=== PATIENT | male | born 2000 | race African-American/Black ===

== ENCOUNTER 2024-02-25 06:21 | Emergency (ER) | payer SELFPAY ==
[~2024-02-25] VITALS: Ht 177.8 cm; Wt 104.0 kg
[2024-02-25 06:27] VITALS: PULSE 84; RESP 18; TEMP 98.4; O2SAT 98
[2024-02-25] MEDS: SODIUM CHLORIDE 0.9% 1,000 ML IV ONE ×2 (08:28→08:33)
[2024-02-25 08:42] LABS: BASOPHILS % 0.5 % (0.0-2.0); EOSINOPHILS % 2.2 % (0.0-5.0); HEMATOCRIT. 43.6 % (42.0-52.0); HEMOGLOBIN. 13.7 g/dL (14.0-18.0); LYMPHOCYTES % 24.7 % (20.0-50.0); MEAN CORPUSCULAR HEMOGLOBIN 26.8 pg (28.0-32.0); MEAN CORPUSCULAR HGB CONC 31.4 g/dL (31.0-37.0); MEAN CORPUSCULAR VOLUME 85.2 fL (80.0-94.0); MEAN PLATELET VOLUME 9.2 fl (7.4-10.4); MONOCYTES % 11.9 % (2.0-8.0); NEUTROPHILS % 60.7 % (40.0-76.0); PLATELET 163 x1000/uL (130-400); RED BLOOD CELL COUNT 5.12 mill/uL (4.7-6.1); RED CELL DISTRIBUTION WIDTH 14.8 % (11.6-14.6); WHITE BLOOD COUNT 6.2 x1000/uL (4.5-11.0)
[2024-02-25 08:49] LABS: CHLORIDE 109 mEq/L (98-107); POTASSIUM 4.1 mEq/L (3.5-5.1); SODIUM 139 mEq/L (136-145)
[2024-02-25 08:50] LABS: CALCIUM 9.3 mg/dL (8.7-10.4); CARBON DIOXIDE 21 mEq/L (21-32)
[2024-02-25 08:55] LABS: CREATININE 0.7 mg/dL (0.6-1.3); GLUCOSE 86 mg/dL (70-105); UREA NITROGEN BLOOD 7 mg/dL (9-23)
[2024-02-25 09:05] LABS: ETHANOL BLOOD < 10 mg/dL (<10)
[2024-02-25 13:33] VITALS: BP 122/86
== END 2024-02-25 14:40 ==
LOC: ER 06:28
DX: R06.00 Dyspnea, unspecified (principal); F15.10 Other stimulant abuse, uncomplicated; F11.20 Opioid dependence, uncomplicated; F17.210 Nicotine dependence, cigarettes, uncomplicated
CPT/HCPCS: 80048; 80320; 85025; 36415; 96360; 99283; J7030; Z7610; G0480